=== PATIENT | female | born 1960 | race Two or more races ===

== ENCOUNTER 2017-04-17 11:25 | Emergency (ER) | payer OTHER ==
[~2017-04-17] VITALS: Ht 160 cm; Wt 63.5 kg
--- NOTE | 2017-04-17 11:55 | NUR ---
Dr narayanan at the bedside for EMS.
[2017-04-17] MEDS ORDERED: IV NORMAL SALINE 1000 ML BAG IV ONE (12:00)
[2017-04-17] MEDS ORDERED: ONDANSETRON 4 MG/2 ML VIAL IV ONE (12:00)
[2017-04-17 12:19] LABS: BASOPHILS % (AUTO) 0.5 % (0.0-2.0); EOSINOPHILS % (AUTO) 0.2 % (0.0-7.0); HEMATOCRIT 40.4 % (31.2-41.9); LYMPHOCYTES # (AUTO) 1.1 K/uL (20.0-40.0); LYMPHOCYTES % (AUTO) 13.7 % (20.5-51.5); MEAN CORPUSCULAR HEMOGLOBIN 30.7 uug (24.7-32.8); MEAN CORPUSCULAR HGB CONC 35 g/dL (32.3-35.6); MEAN CORPUSCULAR VOLUME 88.7 fL (75.5-95.3); MONOCYTES # (AUTO) 0.4 K/uL (2.0-10.0); MONOCYTES % (AUTO) 4.6 % (0.0-11.0); NEUTROPHILS # (AUTO) 6.3 K/uL (1.8-8.9); PLATELET COUNT (AUTO) 239 K/uL (179-408); RED BLOOD CELL COUNT(AUTO) 4.56 MIL/uL (3.63-4.92); WHITE BLOOD COUNT (AUTO) 7.7 K/uL (3.8-11.8)
[2017-04-17 12:20] LABS: CREATININE 0.8 mg/dL (0.6-1.3); POTASSIUM 3.8 mmol/L (3.5-5.1)
[2017-04-17 12:26] LABS: BILIRUBIN,DIRECT 0.1 mg/dL (0.0-0.2); BILIRUBIN,TOTAL 0.4 mg/dL (0.2-1.0); TOTAL PROTEIN, SERUM 7.6 g/dL (6.4-8.2)
[2017-04-17] MEDS ORDERED: ONDANSETRON 4 MG/2 ML VIAL ONE (12:48)
--- NOTE | 2017-04-17 13:03 | NUR ---
IV removed. Catheter intact and site benign. Pressure and 4x4 gauze applied to site. No bleeding noted.
[2017-04-17 13:04] VITALS: BP 123/80
--- NOTE | 2017-04-17 13:06 | NUR ---
Patient discharged to home in stable conditon. Written and verbal after care instructions given. Patient verbalizes understanding of instructions.
== END 2017-04-17 13:06 | disposition home or self-care (01) ==
LOC: ER 11:25
DX: T62.8X1A Toxic effect of other specified noxious substances eaten as food, accidental (unintentional), initial encounter (principal); E78.00 Pure hypercholesterolemia, unspecified; Y92.89 Other specified places as the place of occurrence of the external cause
CPT/HCPCS: 36415; 83690; 85025; A4663; J2405; J7030

== ENCOUNTER 2024-10-14 21:26 | Emergency (ER) | payer OTHER ==
[~2024-10-14] VITALS: Ht 154.9 cm; Wt 62.1 kg
[2024-10-14] MEDS ORDERED: LEVO75TA7 PO (21:53)
[2024-10-14] MEDS ORDERED: HYDR-4209 PO (22:58)
[2024-10-14 23:31] VITALS: BP 122/70; O2SAT 99
== END 2024-10-14 23:22 | disposition home or self-care (01) ==
LOC: ER 21:38
DX: R51.9 Headache, unspecified (principal); E03.9 Hypothyroidism, unspecified; Z86.79 Personal history of other diseases of the circulatory system
CPT/HCPCS: 36415; 70450; 85651; A4606; A4663